=== PATIENT | female | born 1945 | race Caucasian/White ===

== ENCOUNTER 2017-02-14 09:06 | Day surgery (SDC) | payer MEDICARE, BC ==
[2017-02-14] MEDS ORDERED: PROPOFOL 500 MG/50 ML EMU IV ONE (11:05)
[2017-02-14 12:08] VITALS: BP 116/61; PULSE 64; RESP 18; TEMP 97.6; O2SAT 98
== END 2017-02-14 12:35 | disposition home or self-care (01) | DRG 951 ==
LOC: SURG 09:06
PROVIDERS: ATTEND Surgery
DX: Z12.11 Encounter for screening for malignant neoplasm of colon (principal); D12.0 Benign neoplasm of cecum; Z83.71 Family history of colonic polyps; D12.3 Benign neoplasm of transverse colon
CPT/HCPCS: J2704